=== PATIENT | female | born 1985 | race Caucasian/White ===

== ENCOUNTER 2016-11-24 14:50 | Emergency (ER) | payer MEDICAID ==
[2016-11-24 14:59] VITALS: BP 139/85
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
== END 2016-11-24 16:25 | disposition home or self-care (01) ==
LOC: JD.ED 14:50
DX: M54.31 Sciatica, right side (principal); F17.210 Nicotine dependence, cigarettes, uncomplicated; Z88.2 Allergy status to sulfonamides; Z88.8 Allergy status to other drugs, medicaments and biological substances
CPT/HCPCS: 99283

== ENCOUNTER 2017-09-29 13:45 | Emergency (ER) | payer MEDICAID ==
[2017-09-29] MEDS ORDERED: Iodixanol 652 MG/ML 100 ML Bottle IVPUSH ONE (14:34)
[2017-09-29] MEDS ORDERED: Sodium Chloride 0.9% 10 ML Syringe FLUSH PRN ×2 (14:34→14:39)
[2017-09-29] MEDS ORDERED: Iopamidol 612 MG/ML 150 ML Bottle IVPUSH ONE (14:39)
[2017-09-29] MEDS ORDERED: Diatrizoate Meglumine/Diatrizoate Sodium 37% 120 ML Bottle PO ONE (14:39)
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
[2017-09-29] MEDS ORDERED: Sodium Chloride 0.9% 1,000 ML IV ONE (14:59)
[2017-09-29] MEDS ORDERED: Dicyclomine 10 MG Cap PO ONE (16:27)
[2017-09-29] MEDS: Dicyclomine 10 MG Cap PO ONE ×2 (16:55→17:07)
[2017-09-29] MEDS ORDERED: Dicyclomine 10 MG Cap ONE (16:59)
[2017-09-29 17:55] VITALS: BP 117/82
--- NOTE | 2017-09-30 16:38 | CT ---
CT abdomen and pelvis Technique: Multiple axial sections were obtained from above the dome of the diaphragm inferiorly through the pubic symphysis. Intravenous and oral contrast was utilized. Delayed images were also obtained through the bladder. Comparison: No prior abdominal imaging is available. Findings: Visualized lung bases show nothing acute. Liver shows no focal parenchymal abnormality. Minimal low density compatible with fat is seen next to the ligamentum teres fissure. Spleen appears within normal limits. Adrenal glands show no nodule. Pancreas is normal. Kidneys show symmetric contrast enhancement without hydronephrosis or mass. Gallbladder contains no calcified gallstones. Aorta shows no aneurysmal dilatation. No retroperitoneal adenopathy or mesenteric abnormalities are seen. Appendix is seen which appears normal. No pelvic mass or adenopathy is seen. Delayed images show contrast within the distal ureters and within the bladder. No free fluid or inflammatory change is seen. Bone window settings were reviewed which show severe disc space narrowing at L5-S1 with endplate sclerosis, subchondral cystic change and vacuum phenomena. Impression: 1. Incidental findings. Nothing acute is seen on CT study of the abdomen and pelvis. There is specifically no CT evidence of Crohn's disease at this time. Diagnostic code #2 I agree with preliminary report from [facility], finalized at 09/29/17, 5:49 PM Central Time
== END 2017-09-29 17:50 | disposition home or self-care (01) ==
LOC: JD.ED 13:45
DX: R10.31 Right lower quadrant pain (principal); R21 Rash and other nonspecific skin eruption; F17.210 Nicotine dependence, cigarettes, uncomplicated; Z88.2 Allergy status to sulfonamides
CPT/HCPCS: 36415; 74177; 80053; 81001; 81025; 83690; 85025; 86140; 96360; 99284; A9270; J7040; J7050; Q9963; Q9967

== ENCOUNTER 2017-11-21 15:57 | Emergency (ER) | payer MEDICAID ==
[2017-11-21 16:11] VITALS: BP 113/94
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
== END 2017-11-21 16:38 | disposition home or self-care (01) ==
LOC: JD.ED 15:57
DX: K02.9 Dental caries, unspecified (principal); F17.210 Nicotine dependence, cigarettes, uncomplicated; Z88.2 Allergy status to sulfonamides; Z88.5 Allergy status to narcotic agent; Z79.899 Other long term (current) drug therapy
CPT/HCPCS: 99283

== ENCOUNTER 2018-06-09 13:47 | Emergency (ER) | payer MEDICAID ==
[2018-06-09 14:08] VITALS: BP 131/97
--- NOTE | 2018-06-09 14:15 | EDM.PDOC ---
ED HPI GENERAL MEDICAL PROBLEM - General Chief Complaint: Abdominal Pain Stated Complaint: ABDOMINAL PAIN Time Seen by Provider: 06/09/18 14:12 - History of Present Illness INITIAL COMMENTS - FREE TEXT/NARRATIVE: 32-year-old female presents emergency room with lightheadedness with change of position and abdominal pain. Patient has a history of Crohn's disease. She is recently diagnosed with C. difficile she was started on Flagyl the day after [facility] however did not get it filled until New 's Day as she had some reservations about taking the antibiotic since been on the antibiotic she has not noticed any improvement and her abdominal discomfort seems to be worse. She is convinced she is dehydrated. The C. 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 Early she's having 8-10 watery stools a day with frequent abdominal cramps. Right Abdomen Pain Score (Numeric/FACES): 10 - Related Data Allergies Allergy/AdvReac Type Severity Reaction Status Date / Time Sulfa (Sulfonamide Allergy Anaphylactic Verified 11/21/17 16:05 Antibiotics) Shock steroids Allergy Other Uncoded 11/21/17 16:05 Home Meds: Home Meds diphenhydrAMINE [Benadryl] 25 mg PO BEDTIME 11/24/16 [History] Cholecalciferol (Vitamin D3) [Vitamin D3] 5,000 mg PO DAILY 09/29/17 [History] Vitamin B Complex 1 cap PO DAILY 09/29/17 [History] Acetaminophen/HYDROcodone [B[place]ide 325-5 MG] 1 - 2 tab PO Q6H PRN #15 tablet 06/09 [Rx] Ondansetron [Zofran ODT] 4 mg PO Q6H PRN #12 tab.dis 06/09/18 [Rx] metroNIDAZOLE [Flagyl] 500 mg PO TID 06/09/18 [History] Past Medical History Gastrointestinal History: Reports: Other (See Below) Other Gastrointestinal History: crohns disease 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: , 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 (See Below) 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 Denies: Constipation, Nausea, Vomiting : Reports: No Symptoms Musculoskeletal: Reports: Other (She is achy all over) Skin: Reports: No Symptoms Neurological: Reports: No Symptoms ED EXAM, GI/ABD - Physical Exam Exam: See Below Exam Limited By: No Limitations General Appearance: Alert, Anxious (Mild anxiety) Head: Atraumatic, Normocephalic Neck: Normal Inspection, Supple, Non-Tender, Full Range of Motion Respiratory/Chest: No Respiratory Distress, Lungs Clear, Normal Breath Sounds Cardiovascular: Regular Rate, Rhythm, No Edema, No Murmur GI/Abdominal Exam: Normal Bowel Sounds, Soft, No Distention, No Abnormal Bruit, Pelvis Stable, Other (She has diffuse abdominal tenderness seems to worse on the right side upper and lower quadrants no rigidity or guarding noted. Rebound tenderness cannot be excluded) Back Exam: Normal Inspection. No: CVA Tenderness (L), CVA Tenderness (R) Extremities: Normal Inspection, No Pedal Edema Neurological: Alert, Oriented, Normal Cognition Psychiatric: Anxious Skin Exam: Warm, Dry, Intact Course - Vital Signs Last Recorded V/S: Last Vital Signs Temp 36.7 C 06/09/18 14:06 Pulse 96 06/09/18 14:06 Resp 20 06/09/18 14:06 BP 131/97 H 06/09/18 14:06 Pulse Ox 100 06/09/18 14:06 - Orders/Labs/Meds Orders: Active Orders 24 hr Category Date Time Status Abdomen Pelvis w Cont [CT] Stat Exams 06/09/18 17:14 Taken Lactated Ringers [Ringers, Lactated] 1,000 ml Med 06/09/18 15:00 Active IV ASDIRECTED Medication Orders Lactated Ringer's (Ringers, Lactated) 1,000 mls @ 150 mls/hr IV ASDIRECTED ANNALISA Last Admin: 06/09/18 16:59 Dose: 150 mls/hr Labs: Laboratory Tests 06/09/18 06/09/18 06/09/18 Range/Units 15:40 15:40 17:00 WBC 7.84 (3.98-10.04) K/mm3 RBC 4.68 (3.98-5.22) M/mm3 Hgb 15.3 (11.2-15.7) gm/L Hct 45.4 H (34.1-44.9) % MCV 97.0 H (79.4-94.8) fl MCH 32.7 H (25.6-32.2) pg MCHC 33.7 (32.2-35.5) g/dl RDW Std Deviation 43.8 (36.4-46.3) fL Plt Count 269 (182-369) K/mm3 MPV 10.4 (9.4-12.3) fl Neutrophils % (Manual) 82 H (40-60) % Band Neutrophils % 0 (0-10) % Lymphocytes % (Manual) 13 L (20-40) % Atypical Lymphs % 0 % Monocytes % (Manual) 4 (2-10) % Eosinophils % (Manual) 1 (0.7-5.8) % Basophils % (Manual) 0 L (0.1-1.2) Platelet Estimate Adequate RBC Morph Comment Normal Sodium 142 (136-145) mEq/L Potassium 3.8 (3.5-5.1) mEq/L Chloride 108 H (98-107) mEq/L Carbon Dioxide 18 L (21-32) mEq/L Anion Gap 19.8 H (5-15) BUN 11 (7-18) mg/dL Creatinine 0.9 (0.55-1.02) mg/dL Est Cr Clr Drug Dosing 83.23 mL/min Estimated GFR (MDRD) > 60 (>60) mL/min BUN/Creatinine Ratio 12.2 L (14-18) Glucose 92 (74-106) mg/dL Calcium 9.1 (8.5-10.1) mg/dL Total Bilirubin 0.4 (0.2-1.0) mg/dL AST 81 H (15-37) U/L ALT 91 H (14-59) U/L Alkaline Phosphatase 81 (46-116) U/L Total Protein 7.4 (6.4-8.2) g/dl Albumin 4.3 (3.4-5.0) g/dl Globulin 3.1 gm/dL Albumin/Globulin Ratio 1.4 (1-2) Lipase 108 (73-393) U/L Urine Color (Yellow) Urine Appearance (Clear) Urine pH (5.0-8.0) Ur Specific [place] (1.005-1.030) Urine Protein (Negative) Urine Glucose (UA) (Negative) Urine Ketones (Negative) Urine Occult Blood (Negative) Urine Nitrite (Negative) Urine Bilirubin (Negative) Urine Urobilinogen (0.2-1.0) Ur Leukocyte Esterase (Negative) Urine RBC (0-5) /hpf Urine WBC (0-5) /hpf Ur Epithelial Cells (0-5) /hpf Urine Bacteria (FEW) /hpf Urine Mucus (FEW) /hpf Urine HCG, Qual Negative (NEGATIVE) 06/09/18 Range/Units 17:00 WBC (3.98-10.04) K/mm3 RBC (3.98-5.22) M/mm3 Hgb (11.2-15.7) gm/L Hct (34.1-44.9) % MCV (79.4-94.8) fl MCH (25.6-32.2) pg MCHC (32.2-35.5) g/dl RDW Std Deviation (36.4-46.3) fL Plt Count (182-369) K/mm3 MPV (9.4-12.3) fl Neutrophils % (Manual) (40-60) % Band Neutrophils % (0-10) % Lymphocytes % (Manual) (20-40) % Atypical Lymphs % % Monocytes % (Manual) (2-10) % Eosinophils % (Manual) (0.7-5.8) % Basophils % (Manual) (0.1-1.2) Platelet Estimate RBC Morph Comment Sodium (136-145) mEq/L Potassium (3.5-5.1) mEq/L Chloride (98-107) mEq/L Carbon Dioxide (21-32) mEq/L Anion Gap (5-15) BUN (7-18) mg/dL Creatinine (0.55-1.02) mg/dL Est Cr Clr Drug Dosing mL/min Estimated GFR (MDRD) (>60) mL/min BUN/Creatinine Ratio (14-18) Glucose (74-106) mg/dL Calcium (8.5-10.1) mg/dL Total Bilirubin (0.2-1.0) mg/dL AST (15-37) U/L ALT (14-59) U/L Alkaline Phosphatase (46-116) U/L Total Protein (6.4-8.2) g/dl Albumin (3.4-5.0) g/dl Globulin gm/dL Albumin/Globulin Ratio (1-2) Lipase (73-393) U/L Urine Color Yellow (Yellow) Urine Appearance Clear (Clear) Urine pH 6.5 (5.0-8.0) Ur Specific [place] 1.025 (1.005-1.030) Urine Protein Trace H (Negative) Urine Glucose (UA) Negative (Negative) Urine Ketones 3+ H (Negative) Urine Occult Blood Negative (Negative) Urine Nitrite Negative (Negative) Urine Bilirubin 1+ H (Negative) Urine Urobilinogen 0.2 (0.2-1.0) Ur Leukocyte Esterase Trace H (Negative) Urine RBC 0-5 (0-5) /hpf Urine WBC 0-5 (0-5) /hpf Ur Epithelial Cells 0-5 (0-5) /hpf Urine Bacteria Few (FEW) /hpf Urine Mucus Moderate H (FEW) /hpf Urine HCG, Qual (NEGATIVE) Meds: Medications Generic Name Dose Route Start Last Admin Trade Name Freq PRN Reason Stop Dose Admin Lactated Ringer's 1,000 mls @ 150 mls/hr 06/09/18 15:00 06/09/18 16:59 Ringers, Lactated IV 150 mls/hr ASDIRECTED ANNALISA Administration Discontinued Medications Generic Name Dose Route Start Last Admin Trade Name Freq PRN Reason Stop Dose Admin Diatrizoate Meglum/Diatrizoate Sod 90 ml 06/09/18 18:25 06/09/18 19:01 Gastrografin 37% PO 06/09/18 18:26 90 ml ONETIME ONE Administration Diphenhydramine HCl 50 mg 06/09/18 18:32 06/09/18 18:48 Benadryl IVPUSH 06/09/18 18:33 50 mg ONETIME ONE Administration Famotidine 40 mg 06/09/18 18:32 06/09/18 18:51 Pepcid IVPUSH 06/09/18 18:33 40 mg ONETIME ONE Administration Fentanyl 100 mcg 06/09/18 15:56 06/09/18 16:16 Sublimaze IVPUSH 06/09/18 15:57 100 mcg ONETIME ONE Administration Hydromorphone HCl 0.5 mg 06/09/18 18:23 Dilaudid IVPUSH 06/09/18 18:24 ONETIME ONE Lactated Ringer's 1,000 mls @ 999 mls/hr 06/09/18 14:45 06/09/18 15:43 Ringers, Lactated IV 06/09/18 15:45 999 mls/hr .BOLUS ONE Administration Lactated Ringer's 500 mls @ 999 mls/hr 06/09/18 17:16 Ringers, Lactated IV 06/09/18 17:46 .BOLUS ONE Iopamidol 100 ml 06/09/18 18:25 06/09/18 19:01 Isovue-300 (61%) IVPUSH 06/09/18 18:26 100 ml ONETIME ONE Administration Ondansetron HCl 4 mg 06/09/18 18:23 06/09/18 18:47 Zofran IVPUSH 06/09/18 18:24 4 mg ONETIME ONE Administration Sodium Chloride 10 ml 06/09/18 18:25 06/09/18 19:01 Saline Flush FLUSH 06/09/18 18:26 10 ml ONETIME ONE Administration - Re-Assessments/Exams Free Text/Narrative Re-Assessment/Exam: 06/09/18 17:15 Urinalysis still pending she still has significant right-sided discomfort worse in the right lower quadrant this is getting worse than her initial exam we'll proceed with CT 06/09/18 18:24 Patient refused the oral contrast we'll proceed with a CT without oral contrast. She's also developed a little bit of nausea and vomiting will give her dose of Zofran and her pain is worse we'll give her 0.5 of Dilaudid. 06/09/18 20:[address] is unremarkable no acute changes. We'll discharge anticipating she's given continue her Flagyl will give her some [place] for the discomfort and Zofran for the nausea. Departure - Departure Time of Disposition: 20:28 Disposition: Home, Self-Care 01 Clinical Impression: Abdominal pain of unknown etiology, Clostridium difficile colitis - Discharge Information Prescriptions: Acetaminophen/HYDROcodone [[place]ide 325-5 MG] 1 - 2 tab PO Q6H PRN #15 tablet PRN Reason: Abdominal Pain Ondansetron [Zofran ODT] 4 mg PO Q6H PRN #12 tab.dis PRN Reason: Nausea/Vomiting Referrals: Rosette Seo MD [Primary Care Provider] - Forms: ED Department Discharge Additional Instructions: Return to the emergency room with any questions problems worsening symptoms. Continue and take her Flagyl, or metronidazole, until it is all gone. Use the pain and nausea medication as needed and as directed. - My Orders Last 24 Hours: My Active Orders 06/09/18 15:00 Lactated Ringers [Ringers, Lactated] 1,000 ml IV ASDIRECTED 06/09/18 17:14 Abdomen Pelvis w Cont [CT] Stat - Assessment/Plan Last 24 Hours: My Active Orders 06/09/18 15:00 Lactated Ringers [Ringers, Lactated] 1,000 ml IV ASDIRECTED 06/09/18 17:14 Abdomen Pelvis w Cont [CT] Stat
[2018-06-09] MEDS ORDERED: Lactated Ringers 1,000 ML IV ONE (14:45)
[2018-06-09] MEDS ORDERED: Lactated Ringers 1,000 ML IV SCH (15:00)
[2018-06-09] MEDS ORDERED: fentaNYL 100 MCG/2 ML SDV IVPUSH ONE (15:56)
[2018-06-09] MEDS ORDERED: Lactated Ringers 500 ML IV ONE (17:16)
[2018-06-09] MEDS ORDERED: HYDROmorphone 0.5 MG/0.5 ML Syringe IVPUSH ONE (18:23)
[2018-06-09] MEDS ORDERED: Ondansetron 4 MG/2 ML SDV IVPUSH ONE (18:23)
[2018-06-09] MEDS ORDERED: Sodium Chloride 0.9% 10 ML Syringe FLUSH ONE (18:25)
[2018-06-09] MEDS ORDERED: Diatrizoate Meglumine/Diatrizoate Sodium 37% 120 ML Bottle PO ONE (18:25)
[2018-06-09] MEDS ORDERED: Iopamidol 612 MG/ML 100 ML Bottle IVPUSH ONE (18:25)
[2018-06-09] MEDS ORDERED: Famotidine 20 MG/2 ML SDV IVPUSH ONE (18:32)
[2018-06-09] MEDS ORDERED: diphenhydrAMINE 50 MG/ML SDV IVPUSH ONE (18:32)
--- NOTE | 2018-06-10 14:08 | CT ---
CT abdomen and pelvis Technique: Multiple axial sections were obtained from above the dome of the diaphragm inferiorly through the pubic symphysis. Intravenous contrast was utilized. No oral contrast has been given. Comparison: Prior CT abdomen and pelvis exam of 09/29/17. Note: Patient refused oral contrast, slightly diminishes details of bowel Findings: Visualized lung bases show nothing acute. Liver contains no focal parenchymal abnormality. Spleen appears within normal limits. Adrenal gland on the left side shows a minimal nodule measuring 8 mm believed to be incidental. Right adrenal gland is unremarkable. Pancreas appears normal. Gallbladder contains no calcified gallstones. Kidneys show symmetric contrast enhancement without hydronephrosis or mass. Spleen appears within normal limits. Aorta shows no aneurysm. No retroperitoneal adenopathy or mesenteric abnormalities are seen. No pelvic mass or adenopathy is seen. Appendix is seen which is normal in size. No free fluid or inflammatory change is seen. Delayed images show contrast within the bladder. Bone window settings were reviewed which show severe disc space narrowing at L5-S1 with vacuum phenomena. Small and incidental fat-containing umbilical hernia is noted. Impression: 1. Incidental findings as noted above. Nothing acute is appreciated on CT study of the abdomen and pelvis. Diagnostic code #2 Agree with preliminary report issued by [email or web address], preliminary report finalized on 06/09/18, 9:13 PM Central Time
== END 2018-06-09 20:40 | disposition home or self-care (01) ==
LOC: JD.ED 13:47
DX: A04.72 Enterocolitis due to Clostridium difficile, not specified as recurrent (principal); Z88.5 Allergy status to narcotic agent; Z91.09 Other allergy status, other than to drugs and biological substances
CPT/HCPCS: 36415; 74177; 80053; 81001; 81025; 83690; 85007; 85027; 99284; J1200; J2405; J3010; J3490; J7120; Q9963; Q9967; 96361; 96374; 96375

== ENCOUNTER 2018-07-25 06:54 | Emergency (ER) | payer MEDICAID ==
[2018-07-25 07:11] VITALS: BP 116/87
--- NOTE | 2018-07-25 07:38 | EDM.PDOC ---
ED HPI GENERAL MEDICAL PROBLEM - General Chief Complaint: ENT Problem Stated Complaint: DENTAL PAIN Time Seen by Provider: 07/25/18 07:17 Source of Information: Reports: Patient History Limitations: Reports: No Limitations - History of Present Illness INITIAL COMMENTS - FREE TEXT/NARRATIVE: The patient presents with left upper and lower jaw dental pain. This all started about a month ago. She has been treated for chronic fungal sinusitis for months. The pain in her jaw has been coming and going. She has no fever or chills. She had a tooth pulled in the left lower jaw a couple years ago and had no problems until recently. Onset: Gradual Duration: Week(s): (4) Location: Reports: Other (Left upper and lower jaw pain) Quality: Reports: Sharp Severity: Severe Improves with: Reports: None Worsens with: Reports: None Associated Symptoms: Reports: No Other Symptoms Left Face/Facial Pain Score (Numeric/FACES): 10 - Related Data Allergies Allergy/AdvReac Type Severity Reaction Status Date / Time Sulfa (Sulfonamide Allergy Anaphylactic Verified 07/25/18 07:12 Antibiotics) Shock steroids Allergy Other Uncoded 07/25/18 07:12 Home Meds: Home Meds diphenhydrAMINE [Benadryl] 25 mg PO BEDTIME 11/24/16 [History] Cholecalciferol (Vitamin D3) [Vitamin D3] 5,000 mg PO DAILY 09/29/17 [History] Vitamin B Complex 1 cap PO DAILY 09/29/17 [History] Cephalexin [Keflex] 500 mg PO TID #21 capsule 07/25/18 [Rx] Hydrocodone/Acetaminophen [Hydrocodon-Acetaminophen 5-325] 1 - 2 each PO Q6HR PRN #20 tablet 07/25/18 [Rx] Voriconazole 200 mg PO DAILY 07/25/18 [History] Past Medical History HEENT History: Reports: Sinusitis Other HEENT History: fungal sinusitis. 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 Musculoskeletal History: Reports: Fracture, Other (See Below) Other Musculoskeletal History: C7 fracture Neurological History: Reports: Concussion Psychiatric History: Reports: Anxiety, Bipolar, Depression Hematologic History: Reports: Other (See Below) Other Hematologic History: vitamin B deficiency Dermatologic History: Reports: Other (See Below) Other Dermatologic History: fungal rashes - Infectious Disease History Infectious Disease History: Reports: Chicken Pox - Past Surgical History Female Surgical History: Reports: D&C Social & Family History - Family History Family Medical History: Noncontributory - Tobacco Use Smoking Status *Q: Current Every Day Smoker Years of Tobacco use: 20 Packs/Tins Daily: 0.2 Second Hand Smoke Exposure: No - Caffeine Use Caffeine Use: Reports: None - Recreational Drug Use Recreational Drug Use: No ED ROS ENT - Review of Systems Review Of Systems: See Below Constitutional: Reports: No Symptoms HEENT: Reports: Dental Pain Respiratory: Reports: No Symptoms Cardiovascular: Reports: No Symptoms Endocrine: Reports: No Symptoms GI/Abdominal: Reports: No Symptoms : Reports: No Symptoms Musculoskeletal: Reports: No Symptoms ED EXAM, ENT - Physical Exam Exam: See Below Exam Limited By: No Limitations General Appearance: Alert, No Apparent Distress Ears: Normal External Exam Nose: Normal Inspection Mouth/Throat: Other (Pain upon palpation with some edema and erythema to the left upper and lower jaw) Course - Vital Signs Last Recorded V/S: Last Vital Signs Temp 98.2 F 07/25/18 07:07 Pulse 90 07/25/18 07:07 Resp 18 07/25/18 07:07 BP 116/87 07/25/18 07:07 Pulse Ox 100 07/25/18 07:07 - Re-Assessments/Exams Free Text/Narrative Re-Assessment/Exam: 07/25/18 07:36 I will get her on some keflex and something for pain. Departure - Departure Time of Disposition: 07:40 Disposition: Home, Self-Care 01 Condition: Good Clinical Impression: Pain, dental, Dental abscess - Discharge Information *PRESCRIPTION DRUG MONITORING PROGRAM REVIEWED*: No *COPY OF PRESCRIPTION DRUG MONITORING REPORT IN PATIENT LEILA: No Prescriptions: Hydrocodone/Acetaminophen [Hydrocodon-Acetaminophen 5-325] 1 - 2 each PO Q6HR PRN #20 tablet PRN Reason: Pain Cephalexin [Keflex] 500 mg PO TID #21 capsule Referrals: Rosette Seo MD [Primary Care Provider] - 1 Week Additional Instructions: Take the medication as prescribed. Follow up with your dentist. Please return if you are worse.
== END 2018-07-25 07:59 | disposition home or self-care (01) ==
LOC: JD.ED 06:54
DX: K04.7 Periapical abscess without sinus (principal); F17.210 Nicotine dependence, cigarettes, uncomplicated; Z88.2 Allergy status to sulfonamides; Z88.5 Allergy status to narcotic agent; Z79.899 Other long term (current) drug therapy
CPT/HCPCS: 99282; 99283